=== PATIENT | female | born 1965 | race Caucasian/White ===

== ENCOUNTER 2017-02-13 08:49 | Emergency (ER) | payer SELFPAY ==
[2017-02-13 10:06] LABS: Bilirubin Negative (Negative); Blood, Urine Large (Negative); Glucose, Urine (Dipstick) Negative (Negative); Ketone, Urine Negative (Negative); Nitrite Negative (Negative); Protein, Urine (Dipstick) 100 mg/dL (Neg-Trace)
[2017-02-13 10:09] LABS: Bacteria/HPF 3+ HPF (None Seen); Hyaline Casts/LPF 0-3 HYALINE CAST LPF (0-3 Hyaline); RBC/HPF GREATER THAN 50-TNTC HPF (0-3); Squamous Epithelial None Seen HPF (0-3); WBC/HPF 0-3 HPF (0-3)
[2017-02-13 11:00] LABS: #Eosinphils 0.1 thou/uL (0.0-0.7); #Lymphocytes 1.4 thou/uL (1.20-3.40); #Monocytes 0.5 thou/uL (0.11-0.59); #Neutrophils 8.5 thou/uL (1.40-6.50); %Basophils 0.3 % (0.0-1.0); %Eosinophils 0.9 % (0.0-10.0); %Lymphocytes 13.1 % (21.0-51.0); %Monocytes 4.4 % (0.0-10.0); Hematocrit 40.8 % (36.0-47.0); Mean Platelet Volume 7.4 fL (7.4-10.4); Red Blood Cell (RBC) Count 4.67 mill/uL (4.20-5.40); White Blood Cell (WBC) Count 10.4 thou/uL (4.8-10.8)
[2017-02-13 11:20] LABS: Anion Gap 13 mmol/L (10-20); BUN (Urea Nitrogen) 11 mg/dL (9.8-20.1); Calc. Creatinine Clearance 0 mL/min (70-130); Calcium 9.8 mg/dL (7.8-10.44); Carbon Dioxide 28 mmol/L (22-29); Chloride 100 mmol/L (98-107); Estimated GFR-MDRD 76
--- NOTE | 2017-02-13 12:00 | CT ---
CT ABDOMEN AND PELVIS: DATE: 02/13/17. COMPARISON: None. HISTORY: Urinary tract infection symptoms, bladder pressure with dysuria, frequency, and hematuria. TECHNIQUE: Serial axial CT imaging at 5 mm intervals from lung bases through pubic symphysis without contrast. Coronal reformatted imaging obtained. FINDINGS: The lack of contrast media limits assessment of the viscera, bowel vascular structures, and for lymph adenopathy. The imaged lung bases are grossly unremarkable. There are clips in the right upper quadrant suggesti ng prior cholecystectomy. No free intraperitoneal air or fluid is noted. The liver, spleen, pancreas, and adrenal glands are unremarkable. There is a punctate nonobstructing upper pole stone on the left best seen on image 89 measuring appro ximately 2 mm. There is a punctate nonobstructing mid pole right renal stone best seen on coronal im age 72. There is no hydronephrosis on the right. No evidence for obstructive uropathy is seen on ei ther side. There is an exophytic hypodense lesion emanating from the posterior right renal mid pole, with Hounsfield units suggesting a simple cyst, measuring in the 2 cm range. The uterus appears surgically absent. There is scattered colonic diverticula including the ascending and descending colon, with no evidence for diverticulitis. There is no evidence for bowel obstructi on or appendicitis. There is lower lumbar spine facet hypertrophic change. There is degenerative change at the lumbosacr al junction. No worrisome lytic or blastic bone lesion noted. IMPRESSION: No evidence for obstructive uropathy. Punctate nonobstructing renal calculi noted bilaterally. POS: [facility]
[2017-02-13] MEDS ORDERED: Ciprofloxacin 500 MG TAB ONE (12:07)
== END 2017-02-13 12:10 | disposition home or self-care (01) ==
LOC: ERS 08:49
DX: N39.0 Urinary tract infection, site not specified (principal); F32.9 Major depressive disorder, single episode, unspecified; F41.9 Anxiety disorder, unspecified; E11.9 Type 2 diabetes mellitus without complications; Z79.899 Other long term (current) drug therapy; Z79.4 Long term (current) use of insulin
CPT/HCPCS: 36415; 74176; 80048; 81003; 81015; 85025; 87077; 87086; 87186

== ENCOUNTER 2018-01-21 18:58 | Emergency (ER) | payer MEDICAID, SELFPAY ==
[2018-01-21] MEDS ORDERED: Ketorolac Tromethamine 60 MG/2 ML VIAL ONE (19:24)
--- NOTE | 2018-01-21 19:36 | RAD ---
FOUR VIEWS RIGHT KNEE: 01/21/18 HISTORY: Right knee pain. AP, lateral and both oblique views right knee obtained. For views of the right knee demonstrates no evidence of right knee fractures, subluxations, or bony l esions. IMPRESSION: Normal four views right knee. POS: [facility]
== END 2018-01-21 19:54 | disposition home or self-care (01) ==
LOC: ERS 18:58
DX: S80.01XA Contusion of right knee, initial encounter (principal); E11.9 Type 2 diabetes mellitus without complications; E78.00 Pure hypercholesterolemia, unspecified; F41.9 Anxiety disorder, unspecified; F32.9 Major depressive disorder, single episode, unspecified; Z79.899 Other long term (current) drug therapy; Z79.4 Long term (current) use of insulin; X58.XXXA Exposure to other specified factors, initial encounter
CPT/HCPCS: 96372; J1885

== ENCOUNTER 2018-01-31 21:19 | Emergency (ER) | payer MEDICAID ==
[2018-01-31 21:58] LABS: #Eosinphils 0.1 thou/uL (0.0-0.7); #Lymphocytes 1.2 thou/uL (1.20-3.40); #Monocytes 0.5 thou/uL (0.11-0.59); #Neutrophils 7.1 thou/uL (1.40-6.50); %Basophils 0.2 % (0.0-1.0); %Eosinophils 0.9 % (0.0-10.0); %Lymphocytes 13.1 % (21.0-51.0); %Monocytes 5.3 % (0.0-10.0); %Neutrophils 80.6 % (42.0-75.0); Hemoglobin 14.7 g/dL (12.0-16.0); Mean Corpuscular HGB CONC 33.3 g/dL (32.0-36.0); Mean Corpuscular Hemoglobin 28.9 pg (27.0-31.0); Mean Corpuscular Volume 86.9 fL (78.0-98.0); Mean Platelet Volume 7.4 fL (7.4-10.4); Platelet Count 319 thou/uL (130-400); RBC Distribution Width 12.9 % (11.5-14.5); Red Blood Cell (RBC) Count 5.09 mill/uL (4.20-5.40); White Blood Cell (WBC) Count 8.8 thou/uL (4.8-10.8)
[2018-01-31 22:17] LABS: Bilirubin Negative (Negative); Blood, Urine Negative (Negative); Clarity CLOUDY (Clear); Glucose, Urine (Dipstick) 250 mg/dL (Negative); Leukocyte Small (Negative); Nitrite Negative (Negative); Protein, Urine (Dipstick) 30 mg/dL (Neg-Trace); Specific Gravity, Urine 1.026 (1.002-1.036); pH, Urine 6.5 (5.0-9.0)
[2018-01-31 22:19] LABS: ALT (SGPT) 26 U/L (8-55); AST (SGOT) 18 U/L (5-34); Albumin 4.3 g/dL (3.5-5.0); Alkaline Phosphatase 98 U/L (40-150); Anion Gap 13 mmol/L (10-20); BUN (Urea Nitrogen) 13 mg/dL (9.8-20.1); Bilirubin, Total 0.5 mg/dL (0.2-1.2); Calc. Creatinine Clearance 0 mL/min (70-130); Calcium 9.1 mg/dL (7.8-10.44); Carbon Dioxide 26 mmol/L (22-29); Chloride 103 mmol/L (98-107); Estimated GFR-MDRD 78; Globulin 3.2 g/dL (2.4-3.5); Glucose 255 mg/dL (70-105); Lipase 13 U/L (8-78); Magnesium 1.8 mg/dL (1.6-2.6); Potassium 3.7 mmol/L (3.5-5.1); Protein, Total 7.5 g/dL (6.0-8.3); Sodium 138 mmol/L (136-145)
[2018-01-31 22:19] LABS: Bacteria/HPF 1+ HPF (None Seen); Hyaline Casts/LPF 7-10 HYALINE CAST LPF (0-3 Hyaline)
[2018-01-31 22:20] LABS: RBC/HPF 0-3 HPF (0-3)
== END 2018-01-31 23:09 | disposition home or self-care (01) ==
LOC: ERS 21:19
DX: N39.0 Urinary tract infection, site not specified (principal); E11.9 Type 2 diabetes mellitus without complications; F41.9 Anxiety disorder, unspecified; F32.9 Major depressive disorder, single episode, unspecified; Z79.4 Long term (current) use of insulin; Z79.899 Other long term (current) drug therapy
CPT/HCPCS: 36416; 80053; 81003; 81015; 83690; 83735; 85025; 99284

== ENCOUNTER 2018-03-21 16:13 | Emergency (ER) | payer MEDICAID, OTHER | END 2018-03-21 16:54 | disposition home or self-care (01) | LOC: ERS 16:13 | DX: B34.9 Viral infection, unspecified (principal); E11.9 Type 2 diabetes mellitus without complications; I10 Essential (primary) hypertension; E78.00 Pure hypercholesterolemia, unspecified; F41.9 Anxiety disorder, unspecified; F32.9 Major depressive disorder, single episode, unspecified; Z79.4 Long term (current) use of insulin | CPT/HCPCS: 99283 ==

== ENCOUNTER 2018-05-19 20:28 | Emergency (ER) | payer OTHER ==
--- NOTE | 2018-05-19 23:03 | RAD ---
FOUR VIEWS RIGHT KNEE: 05/19/18 HISTORY: Right knee pain. COMPARISON: 01/21/18. FINDINGS: There is irregularity involving the lateral tibial plateau, but this was also present on the prior ex am and may be related to remote fracture involving the lateral tibial plateau. No acute fracture or d islocation is seen. There is no joint effusion appreciated. No other findings. IMPRESSION: 1. No acute osseous abnormality right knee. 2. Probable remote injury and fracture involving the right lateral tibial plateau. POS: [facility]
== END 2018-05-19 21:50 | disposition home or self-care (01) ==
LOC: ERS 20:28
DX: S83.91XA Sprain of unspecified site of right knee, initial encounter (principal); E11.9 Type 2 diabetes mellitus without complications; I10 Essential (primary) hypertension; Z79.4 Long term (current) use of insulin; F41.9 Anxiety disorder, unspecified; F32.9 Major depressive disorder, single episode, unspecified; Z79.899 Other long term (current) drug therapy; V29.9XXA Motorcycle rider (driver) (passenger) injured in unspecified traffic accident, initial encounter

== ENCOUNTER 2018-05-26 15:41 | Emergency (ER) | payer OTHER ==
[2018-05-26 19:02] LABS: #Basophils 0.1 thou/uL (0.0-0.2); #Eosinphils 0.2 thou/uL (0.0-0.7); #Lymphocytes 3.1 thou/uL (1.20-3.40); #Monocytes 0.7 thou/uL (0.11-0.59); #Neutrophils 5.7 thou/uL (1.40-6.50); %Basophils 0.7 % (0.0-1.0); %Eosinophils 2.5 % (0.0-10.0); %Lymphocytes 31.8 % (21.0-51.0); %Neutrophils 57.9 % (42.0-75.0); Hemoglobin 14.6 g/dL (12.0-16.0); Mean Corpuscular HGB CONC 32.5 g/dL (32.0-36.0); Mean Corpuscular Hemoglobin 28.3 pg (27.0-31.0); Mean Platelet Volume 7.5 fL (7.4-10.4); Platelet Count 326 thou/uL (130-400); RBC Distribution Width 13.4 % (11.5-14.5); Red Blood Cell (RBC) Count 5.16 mill/uL (4.20-5.40); White Blood Cell (WBC) Count 9.8 thou/uL (4.8-10.8)
--- NOTE | 2018-05-26 19:25 | RAD ---
CHEST ONE VIEW 05/26/18 INDICATION: History of heart palpitations. COMPARISON: None. FINDINGS: Lungs are clear. Heart size is normal. No acute osseous abnormality is evident. No acute cardiopulmonary abnormality. POS: [facility]
[2018-05-26 19:33] LABS: ALT (SGPT) 24 U/L (8-55); AST (SGOT) 19 U/L (5-34); Albumin 4.6 g/dL (3.5-5.0); Alkaline Phosphatase 110 U/L (40-150); Anion Gap 11 mmol/L (10-20); BUN (Urea Nitrogen) 16 mg/dL (9.8-20.1); Bilirubin, Total 0.3 mg/dL (0.2-1.2); CK (CPK) 50 U/L (29-168); Calc. Creatinine Clearance 0 mL/min (70-130); Calcium 9.9 mg/dL (7.8-10.44); Carbon Dioxide 31 mmol/L (22-29); Chloride 104 mmol/L (98-107); Estimated GFR-MDRD 74; Globulin 2.9 g/dL (2.4-3.5); Glucose 127 mg/dL (70-105); Potassium 4.4 mmol/L (3.5-5.1); Protein, Total 7.5 g/dL (6.0-8.3); Sodium 142 mmol/L (136-145)
== END 2018-05-26 21:32 | disposition home or self-care (01) ==
LOC: ERS 15:41
DX: I10 Essential (primary) hypertension (principal); E11.9 Type 2 diabetes mellitus without complications; E78.5 Hyperlipidemia, unspecified; F41.9 Anxiety disorder, unspecified; F32.9 Major depressive disorder, single episode, unspecified; Z79.899 Other long term (current) drug therapy; Z79.4 Long term (current) use of insulin
CPT/HCPCS: 36415; 36416; 71045; 80053; 82550; 84484; 85025; 93005

== ENCOUNTER 2018-06-03 12:08 | Emergency (ER) | payer OTHER ==
[2018-06-03 13:53] LABS: #Eosinphils 0.2 thou/uL (0.0-0.7); #Lymphocytes 2.4 thou/uL (1.20-3.40); #Monocytes 0.5 thou/uL (0.11-0.59); #Neutrophils 6.1 thou/uL (1.40-6.50); %Basophils 0.3 % (0.0-1.0); %Eosinophils 2.2 % (0.0-10.0); %Monocytes 5.6 % (0.0-10.0); %Neutrophils 65.9 % (42.0-75.0); Hemoglobin 14.9 g/dL (12.0-16.0); Mean Corpuscular HGB CONC 32.5 g/dL (32.0-36.0); Mean Corpuscular Hemoglobin 28.5 pg (27.0-31.0); Mean Corpuscular Volume 87.8 fL (78.0-98.0); Mean Platelet Volume 8.3 fL (7.4-10.4); Platelet Count 311 thou/uL (130-400); RBC Distribution Width 13.8 % (11.5-14.5); Red Blood Cell (RBC) Count 5.22 mill/uL (4.20-5.40); White Blood Cell (WBC) Count 9.2 thou/uL (4.8-10.8)
--- NOTE | 2018-06-03 14:00 | RAD ---
PORTABLE CHEST ONE VIEW: 06/03/2018 1:44 p.m. HISTORY: Dyspnea. COMPARISON: 04/28/2018 FINDINGS: The heart size is normal. The lungs are well expanded without focal areas of consolidation, pneumoth oraces, or pleural effusions. IMPRESSION: No radiographic evidence of acute cardiopulmonary process. POS: [facility]
[2018-06-03 14:19] LABS: ALT (SGPT) 24 U/L (8-55); AST (SGOT) 31 U/L (5-34); Albumin 4.5 g/dL (3.5-5.0); Alkaline Phosphatase 113 U/L (40-150); Anion Gap 17 mmol/L (10-20); BUN (Urea Nitrogen) 19 mg/dL (9.8-20.1); Bilirubin, Total 0.3 mg/dL (0.2-1.2); Calc. Creatinine Clearance 0 mL/min (70-130); Calcium 9.9 mg/dL (7.8-10.44); Carbon Dioxide 21 mmol/L (22-29); Chloride 104 mmol/L (98-107); Estimated GFR-MDRD 81; Globulin 3.4 g/dL (2.4-3.5); Glucose 142 mg/dL (70-105); Potassium 4.3 mmol/L (3.5-5.1); Protein, Total 7.9 g/dL (6.0-8.3); Sodium 138 mmol/L (136-145)
== END 2018-06-03 13:10 | disposition home or self-care (01) ==
LOC: ERS 12:08
DX: F41.9 Anxiety disorder, unspecified (principal); E11.9 Type 2 diabetes mellitus without complications; E78.5 Hyperlipidemia, unspecified; I10 Essential (primary) hypertension; E78.00 Pure hypercholesterolemia, unspecified; F32.9 Major depressive disorder, single episode, unspecified; Z79.1 Long term (current) use of non-steroidal anti-inflammatories (NSAID); Z79.899 Other long term (current) drug therapy; Z79.4 Long term (current) use of insulin
CPT/HCPCS: 36415; 36416; 71045; 80053; 84484; 85025; 93005

== ENCOUNTER 2018-08-31 22:43 | Emergency (ER) | payer OTHER ==
--- NOTE | 2018-08-31 23:29 | RAD ---
Left foot 3 views HISTORY: Left foot pain. FINDINGS: Lisfranc joint. Plantar arch is maintained. Very mild osteoarthritic changes of the first m etatarsophalangeal joint. No acute fracture, dislocation, or aggressive osseous erosions IMPRESSION: No acute osseous abnormalities are demonstrated.
== END 2018-08-31 23:45 | disposition home or self-care (01) ==
LOC: ERS 22:43
DX: S90.812A Abrasion, left foot, initial encounter (principal); F41.9 Anxiety disorder, unspecified; F32.9 Major depressive disorder, single episode, unspecified; E78.5 Hyperlipidemia, unspecified; E11.9 Type 2 diabetes mellitus without complications; I10 Essential (primary) hypertension; Z79.4 Long term (current) use of insulin; Z79.899 Other long term (current) drug therapy; Z79.891 Long term (current) use of opiate analgesic; W22.8XXA Striking against or struck by other objects, initial encounter

== ENCOUNTER 2018-11-20 19:00 | Emergency (ER) | payer MEDICARE, OTHER ==
[2018-11-20] MEDS ORDERED: traMADol HCl 50 MG TAB ONE (19:45)
--- NOTE | 2018-11-20 19:48 | RAD ---
RIGHT KNEE: 11/20/18 Four views. HISTORY: Right knee pain. Injury two days ago. COMPARISON: Comparison made to films of 05/19/18. Degenerative changes are again noted. Slight depression of the lateral tibial plateau is stable. Mil d degenerative spurring is again noted from the patella and condyles. Deformity of the lateral right tibial plateau is described previously and appears stable consistent with old injury. No joint effusi on. IMPRESSION: Degenerative changes. Evidence of old fracture involving the lateral tibial plateau. The findings melony ear stable with no evidence of acute change. POS: [facility]
== END 2018-11-20 20:25 | disposition home or self-care (01) ==
LOC: ERS 19:00
DX: M62.838 Other muscle spasm (principal); E11.9 Type 2 diabetes mellitus without complications; E78.5 Hyperlipidemia, unspecified; E78.00 Pure hypercholesterolemia, unspecified; I10 Essential (primary) hypertension; F41.9 Anxiety disorder, unspecified; F32.9 Major depressive disorder, single episode, unspecified; Z79.4 Long term (current) use of insulin; Z79.899 Other long term (current) drug therapy; W01.0XXA Fall on same level from slipping, tripping and stumbling without subsequent striking against object, initial encounter

== ENCOUNTER 2018-11-29 19:46 | Emergency (ER) | payer MEDICARE, OTHER ==
[2018-11-29 20:10] LABS: Blood, Urine Large (Negative); Glucose, Urine (Dipstick) 500 mg/dL (Negative); Leukocyte Large (Negative); Nitrite Positive (Negative); Protein, Urine (Dipstick) > or equal to 300 mg/dL (Neg-Trace)
[2018-11-29 20:15] LABS: #Basophils 0.1 thou/uL (0.0-0.2); #Eosinphils 0.1 thou/uL (0.0-0.7); #Monocytes 0.8 thou/uL (0.11-0.59); %Basophils 0.5 % (0.0-1.0); %Eosinophils 0.8 % (0.0-10.0); %Lymphocytes 18.9 % (21.0-51.0); %Monocytes 5.1 % (0.0-10.0); %Neutrophils 74.7 % (42.0-75.0); Hemoglobin 14.3 g/dL (12.0-16.0); Mean Corpuscular HGB CONC 33.9 g/dL (32.0-36.0); Mean Corpuscular Hemoglobin 28.9 pg (27.0-31.0); Mean Corpuscular Volume 85.3 fL (78.0-98.0); Platelet Count 329 thou/uL (130-400); RBC Distribution Width 12.5 % (11.5-14.5); Red Blood Cell (RBC) Count 4.94 mill/uL (4.20-5.40)
[2018-11-29 20:15] LABS: Clarity Opaque (Clear)
[2018-11-29 20:16] LABS: Bilirubin Negative (Negative)
[2018-11-29 20:20] LABS: Bacteria/HPF None Seen HPF (None Seen); RBC/HPF Greater than 50 HPF (0-3); Squamous Epithelial 0-3 HPF (0-3); WBC/HPF Greater Than 50 HPF (0-3)
--- NOTE | 2018-11-29 20:33 | CT ---
CT of abdomen and pelvis: 11/29/2018 COMPARISON: 02/13/2017 HISTORY: Right lower quadrant pain, vaginal bleeding, history of cholecystectomy and hysterectomy TECHNIQUE: Axial CT imaging at 5 mm intervals from lung bases through pubic symphysis without contras t. Coronal reformatted imaging obtained. FINDINGS: Lack of contrast media limits assessment of the viscera, bowel, vascular structures, and fo r lymphadenopathy. The imaged lung bases are unremarkable. Cholecystectomy clips are present. No free intraperitoneal ai r or fluid. The liver, spleen, pancreas, and adrenal glands appear unremarkable. There is a simple cyst emanating from the posterior right renal midpole. No evidence for nephrolithia sis or obstructive uropathy is noted on either side. There is diverticulosis of the right colon with no evidence for diverticulitis. The appendix appears unremarkable. No evidence for bowel inflammatory change or obstruction. Osseous structures demonstrate no acute findings. IMPRESSION: No nephrolithiasis or evidence of obstructive uropathy.
[2018-11-29 20:48] LABS: ALT (SGPT) 32 U/L (8-55); AST (SGOT) 23 U/L (5-34); Albumin 4.6 g/dL (3.5-5.0); Alkaline Phosphatase 106 U/L (40-150); Anion Gap 15 mmol/L (10-20); BUN (Urea Nitrogen) 16 mg/dL (9.8-20.1); Bilirubin, Total 0.2 mg/dL (0.2-1.2); Calc. Creatinine Clearance 0 mL/min (70-130); Carbon Dioxide 26 mmol/L (22-29); Chloride 99 mmol/L (98-107); Estimated GFR-MDRD 50; Globulin 3.2 g/dL (2.4-3.5); Glucose 308 mg/dL (70-105); Protein, Total 7.8 g/dL (6.0-8.3); Sodium 136 mmol/L (136-145)
[2018-11-29] MEDS ORDERED: Ciprofloxacin 500 MG TAB ONE (21:35)
== END 2018-11-29 21:35 | disposition home or self-care (01) ==
LOC: ERS 19:46
DX: N39.0 Urinary tract infection, site not specified (principal); E11.65 Type 2 diabetes mellitus with hyperglycemia; I10 Essential (primary) hypertension; F41.9 Anxiety disorder, unspecified; Z79.1 Long term (current) use of non-steroidal anti-inflammatories (NSAID); Z79.899 Other long term (current) drug therapy; Z79.4 Long term (current) use of insulin
CPT/HCPCS: 36415; 74176; 80053; 81003; 81015; 85025; 87086

== ENCOUNTER 2019-03-26 13:15 | Emergency (ER) | payer MEDICARE, OTHER ==
[2019-03-26] MEDS ORDERED: Fentanyl 100 MCG/2 ML VIAL ONE (14:16)
[2019-03-26] MEDS ORDERED: Ketorolac Tromethamine 30 MG/ML VIAL ONE ×2 (14:17)
[2019-03-26] MEDS ORDERED: Dexamethasone 4 mg/ml Vial ONE (14:17)
--- NOTE | 2019-03-26 14:26 | RAD ---
LEFT SHOULDER 3 VIEWS: Date: 03/26/2019 INDICATION: Left shoulder pain. COMPARISON: None. FINDINGS: No acute fracture or subluxation is evident. Visualized left lung is clear. IMPRESSION: No acute osseous abnormality. POS: [facility]
[2019-03-26] MEDS ORDERED: Ondansetron ODT 4 MG TAB ONE (18:05)
== END 2019-03-26 14:55 | disposition home or self-care (01) ==
LOC: ERS 13:15
DX: M75.52 Bursitis of left shoulder (principal); E11.9 Type 2 diabetes mellitus without complications; E78.5 Hyperlipidemia, unspecified; E78.00 Pure hypercholesterolemia, unspecified; I10 Essential (primary) hypertension; F41.9 Anxiety disorder, unspecified; F32.9 Major depressive disorder, single episode, unspecified; Z79.4 Long term (current) use of insulin; Z79.899 Other long term (current) drug therapy
CPT/HCPCS: 96372; J1100; J1885; J3010; Q0162

== ENCOUNTER 2019-12-23 14:01 | Emergency (ER) | payer MEDICARE, MEDICAID ==
--- NOTE | 2019-12-23 14:51 | RAD ---
XR Shoulder Rt 3 View STANDARD HISTORY: Injury, right shoulder pain FINDINGS: No fracture or dislocation is identified.
[2019-12-23] MEDS ORDERED: Ketorolac Tromethamine 30 MG/ML VIAL ONE (15:18)
== END 2019-12-23 15:40 | disposition home or self-care (01) ==
LOC: ERS 14:01
DX: M25.511 Pain in right shoulder (principal); E11.9 Type 2 diabetes mellitus without complications; E78.5 Hyperlipidemia, unspecified; E78.00 Pure hypercholesterolemia, unspecified; I10 Essential (primary) hypertension; F41.9 Anxiety disorder, unspecified; F32.9 Major depressive disorder, single episode, unspecified; Z79.899 Other long term (current) drug therapy; Z79.4 Long term (current) use of insulin
CPT/HCPCS: 96372; J1885

== ENCOUNTER 2020-06-02 20:42 | Observation (INO) | payer MEDICARE, MEDICAID ==
[2020-06-02 21:32] LABS: #Basophils 0.1 thou/uL (0.0-0.2); #Eosinphils 0.1 thou/uL (0.0-0.7); #Lymphocytes 1.8 thou/uL (1.20-3.40); #Monocytes 0.8 thou/uL (0.11-0.59); #Neutrophils 6.5 thou/uL (1.40-6.50); %Basophils 0.6 % (0.0-1.0); %Eosinophils 1.2 % (0.0-10.0); %Lymphocytes 19.8 % (21.0-51.0); %Monocytes 8.5 % (0.0-10.0); Hemoglobin 11.8 g/dL (12.0-16.0); Mean Corpuscular HGB CONC 31.7 g/dL (32.0-36.0); Mean Corpuscular Hemoglobin 25.4 pg (27.0-31.0); Mean Corpuscular Volume 80.2 fL (78.0-98.0); Mean Platelet Volume 7.7 fL (7.4-10.4); Platelet Count 341 thou/uL (130-400); RBC Distribution Width 15.8 % (11.5-14.5); Red Blood Cell (RBC) Count 4.65 mill/uL (4.20-5.40); White Blood Cell (WBC) Count 9.3 thou/uL (4.8-10.8)
[2020-06-02 22:01] LABS: ALT (SGPT) 23 U/L (8-55); AST (SGOT) 18 U/L (5-34); Albumin 4.6 g/dL (3.5-5.0); Alkaline Phosphatase 136 U/L (40-110); Anion Gap 14 mmol/L (10-20); BUN (Urea Nitrogen) 27 mg/dL (9.8-20.1); Bilirubin, Total 0.2 mg/dL (0.2-1.2); Calc. Creatinine Clearance 0 mL/min (70-130); Calcium 9.3 mg/dL (7.8-10.44); Carbon Dioxide 24 mmol/L (22-29); Chloride 102 mmol/L (98-107); Globulin 3.1 g/dL (2.4-3.5); Glucose 169 mg/dL (70-105); Potassium 4.2 mmol/L (3.5-5.1); Protein, Total 7.7 g/dL (6.0-8.3); Sodium 136 mmol/L (136-145)
[2020-06-02] MEDS ORDERED: Nitroglycerin 2% Ointment 1 INCH/1 GM Packet ONE (22:45)
[2020-06-02] MEDS ORDERED: Aspirin Chewable 81 MG TAB ONE (22:45)
[2020-06-03 01:40] LABS: Troponin I Less than 0.010 ng/mL (< 0.028)
[2020-06-03] MEDS ORDERED: hydrOXYzine 25 MG TAB PO PRN (03:23)
[2020-06-03] MEDS ORDERED: Dextrose 5% in Water 1,000 ML IV PRN (03:23)
[2020-06-03] MEDS ORDERED: Acetaminophen 325 MG TAB PO PRN (03:23)
[2020-06-03] MEDS ORDERED: Dextrose 50% Abboject 50 ML SYRINGE SLOW IVP PRN (03:23)
[2020-06-03] MEDS ORDERED: Calcium Carbonate 500 MG ChewTAB PO PRN (03:23)
[2020-06-03] MEDS ORDERED: Ondansetron ODT 4 MG TAB PO PRN (03:23)
[2020-06-03] MEDS ORDERED: HumaLOG 300 UNITS/3 ML VIAL SC PRN (03:23)
[2020-06-03 03:37] VITALS: BMI 38.9
[2020-06-03 05:31] LABS: Troponin I Less than 0.010 ng/mL (< 0.028)
[2020-06-03 09:14] LABS: SARS-CoV-2 PCR by NAA Not Detected (NotDetected)
[2020-06-03] MEDS: Atorvastatin Calcium 40 MG TAB PO SCH (10:57)
[2020-06-03] MEDS: CeleCOXIB 100 MG CAP PO SCH (10:57)
[2020-06-03] MEDS: Lisinopril 10 MG TAB PO SCH (10:58)
[2020-06-03] MEDS: Empagliflozin 25 MG TAB PO SCH (10:58)
[2020-06-03] MEDS: HumaLOG 300 UNITS/3 ML VIAL SC PRN ×2 (11:45→16:53)
[2020-06-03] MEDS ORDERED: ADENOSINE 60 MG/20 ML VIAL ONE (14:51)
[2020-06-03] MEDS ORDERED: Amitriptyline HCl 25 MG TAB PO SCH (21:00)
[2020-06-04] MEDS: HumaLOG 300 UNITS/3 ML VIAL SC PRN ×2 (06:26→11:28)
[2020-06-04] MEDS: CeleCOXIB 100 MG CAP PO SCH (09:24)
[2020-06-04] MEDS: Atorvastatin Calcium 40 MG TAB PO SCH (09:24)
[2020-06-04] MEDS: Empagliflozin 25 MG TAB PO SCH (09:24)
[2020-06-04] MEDS: Lisinopril 10 MG TAB PO SCH (09:25)
[2020-06-04 12:01] VITALS: BP 138/70; TEMP 97.8
== END 2020-06-04 15:04 | disposition home or self-care (01) ==
LOC: ERS 20:42 → 2SE 23:24
PROVIDERS: ADMIT Family Medicine; ATTEND Family Medicine
DX: R07.89 Other chest pain (principal); F41.0 Panic disorder [episodic paroxysmal anxiety]; E11.9 Type 2 diabetes mellitus without complications; E78.5 Hyperlipidemia, unspecified; I10 Essential (primary) hypertension; F41.9 Anxiety disorder, unspecified; F32.9 Major depressive disorder, single episode, unspecified; M19.90 Unspecified osteoarthritis, unspecified site; R00.0 Tachycardia, unspecified; Z79.4 Long term (current) use of insulin; Z79.899 Other long term (current) drug therapy; Z88.0 Allergy status to penicillin; Z88.1 Allergy status to other antibiotic agents; Z88.2 Allergy status to sulfonamides; Z88.5 Allergy status to narcotic agent; Z20.822 Contact with and (suspected) exposure to COVID-19
CPT/HCPCS: 71045; 78452; 80053; 82962 ×2; 84484 ×3; 85025; 93005; 93017; 99285; A9500; G0378 ×4; U0003; U0005; 36415; 36416; 87635; J0153; J1815

== ENCOUNTER 2020-06-15 09:15 | Outpatient (CLI) | payer MEDICARE, MEDICAID | END 2020-06-15 09:16 | disposition home or self-care (01) | LOC: DTY/OP 09:15 | PROVIDERS: ATTEND Hospitalist | DX: E11.65 Type 2 diabetes mellitus with hyperglycemia (principal) | CPT/HCPCS: 97802 ==

== ENCOUNTER 2020-11-24 08:00 | Outpatient (CLI) | payer MEDICARE, MEDICAID | END 2020-11-24 08:01 | disposition home or self-care (01) | LOC: BICMAMMO 08:00 | PROVIDERS: ATTEND Family Medicine | DX: Z12.31 Encounter for screening mammogram for malignant neoplasm of breast (principal) | CPT/HCPCS: 77063; 77067 ==

== ENCOUNTER 2021-02-07 09:45 | Outpatient (CLI) | payer MEDICARE, MEDICAID | END 2021-02-07 09:46 | disposition home or self-care (01) | LOC: BICMAMMO 09:45 | PROVIDERS: ATTEND Family Medicine | DX: Z13.820 Encounter for screening for osteoporosis (principal); Z78.0 Asymptomatic menopausal state | CPT/HCPCS: 77080 ==

== ENCOUNTER 2021-02-13 11:01 | Outpatient (CLI) | payer MEDICARE, MEDICAID ==
[2021-02-14 11:23] LABS: SARS-CoV-2 PCR by NAA Not Detected (NotDetected)
== END 2021-02-13 11:02 | disposition home or self-care (01) ==
LOC: LABBT 11:01
PROVIDERS: ATTEND Internal Medicine Gastroenterology
DX: Z01.812 Encounter for preprocedural laboratory examination (principal); K63.5 Polyp of colon; Z20.822 Contact with and (suspected) exposure to COVID-19
CPT/HCPCS: U0003; U0005

== ENCOUNTER 2021-02-16 06:54 | Day surgery (SDC) | payer MEDICARE, OTHER ==
[2021-02-14 14:33] VITALS: BMI 39.6
[2021-02-16] MEDS ORDERED: Insulin Regular 300 UNITS/3 ML VIAL ONE (08:09)
[2021-02-16] MEDS ORDERED: Lidocaine 1% PF 5 ML VIAL ONE (08:30)
[2021-02-16] MEDS ORDERED: PROPOFOL 200 MG/20 ML VIAL ONE (08:30)
[2021-02-16] MEDS ORDERED: Phenylephrine 10 MG/ML VIAL ONE (08:30)
== END 2021-02-16 11:13 | disposition home or self-care (01) ==
LOC: SDC 06:54
PROVIDERS: ATTEND Internal Medicine Gastroenterology
PROC: 0DJD8ZZ Inspection of Lower Intestinal Tract, Via Natural or Artificial Opening Endoscopic (ICD-10-PCS; principal; 2021-02-16)
DX: Z12.11 Encounter for screening for malignant neoplasm of colon (principal); K64.8 Other hemorrhoids; I10 Essential (primary) hypertension; E11.9 Type 2 diabetes mellitus without complications; J30.9 Allergic rhinitis, unspecified; M19.90 Unspecified osteoarthritis, unspecified site; Z86.010 Personal history of colon polyps; Z79.4 Long term (current) use of insulin; Z79.899 Other long term (current) drug therapy; Z88.0 Allergy status to penicillin; Z88.1 Allergy status to other antibiotic agents; Z88.2 Allergy status to sulfonamides; Z88.5 Allergy status to narcotic agent; Z91.040 Latex allergy status
CPT/HCPCS: 82962; G0121; 36416; J1815; J2370; J2704

== ENCOUNTER 2021-02-22 10:27 | Outpatient (CLI) | payer MEDICARE, MEDICAID | END 2021-02-22 10:28 | disposition home or self-care (01) | LOC: MRI 10:27 | PROVIDERS: ATTEND Family Medicine | DX: M25.562 Pain in left knee (principal); M23.92 Unspecified internal derangement of left knee ==

== ENCOUNTER 2021-07-09 13:01 | Day surgery (SDC) | payer MEDICARE, OTHER ==
[~2021-07-09 13:01] MED LIST: Acetaminophen 500 MG TAB PO SCH; Ferumoxytol (NON ERSD) 510 MG in Sodium Chloride 0.9% 250 ML 150 ML IVPB SCH
[2021-07-09 13:45] VITALS: BP 102/62
== END 2021-07-09 14:57 | disposition home or self-care (01) ==
LOC: ONC/OP 13:01
PROVIDERS: ATTEND Family Medicine
DX: E61.1 Iron deficiency (principal); Z88.0 Allergy status to penicillin; Z88.1 Allergy status to other antibiotic agents; Z88.2 Allergy status to sulfonamides; Z88.5 Allergy status to narcotic agent; Z91.040 Latex allergy status
CPT/HCPCS: 96365; J7050; Q0138

== ENCOUNTER 2022-11-04 12:41 | Emergency (ER) | payer OTHER, MEDICAID ==
[~2022-11-04 12:41] MED LIST changes: -Acetaminophen 500 MG TAB PO SCH; -Ferumoxytol (NON ERSD) 510 MG in Sodium Chloride 0.9% 250 ML 150 ML IVPB SCH; +Iopamidol-370 76% 500 ML MDV (1 ML CHARGE) ONE
[2022-11-04 13:29] LABS: #Monocytes 0.7 thou/uL (0.11-0.59); #Neutrophils 7.3 thou/uL (1.40-6.50); %Basophils 0.4 % (0.0-1.0); %Eosinophils 0.1 % (0.0-10.0); %Lymphocytes 14.6 % (21.0-51.0); %Monocytes 7.5 % (0.0-10.0); %Neutrophils 77.1 % (42.0-75.0); Hematocrit 48.6 % (36.0-47.0); Hemoglobin 16.1 g/dL (12.0-16.0); Mean Corpuscular HGB CONC 33.1 g/dL (32.0-36.0); Mean Corpuscular Hemoglobin 27.8 pg (27.0-31.0); Mean Corpuscular Volume 83.9 fl (78.0-98.0); Mean Platelet Volume 11.8 fL (7.4-10.4); Platelet Count 265 10x3/uL (130-400); RBC Distribution Width 14.4 % (11.5-14.5); Red Blood Cell (RBC) Count 5.79 mill/uL (4.20-5.40); White Blood Cell (WBC) Count 9.4 10x3/uL (4.8-10.8)
[2022-11-04 13:56] LABS: ALT (SGPT) 54 U/L (8-55); AST (SGOT) 55 U/L (5-34); Albumin 4.1 g/dL (3.5-5.0); Alkaline Phosphatase 97 U/L (40-110); Anion Gap 19 mmol/L (10-20); BUN (Urea Nitrogen) 41 mg/dL (9.8-20.1); Bilirubin, Total 0.6 mg/dL (0.2-1.2); Calc. Creatinine Clearance 0 mL/min (70-130); Calcium 10.2 mg/dL (7.8-10.44); Carbon Dioxide 23 mmol/L (22-29); Chloride 101 mmol/L (98-107); Estimated GFR 51; Globulin 3.2 g/dL (2.4-3.5); Glucose 298 mg/dL (70-105); Lipase 27 U/L (8-78); Potassium 4.3 mmol/L (3.5-5.1); Protein, Total 7.3 g/dL (6.0-8.3); Sodium 139 mmol/L (136-145)
[2022-11-04] MEDS ORDERED: Ondansetron PF 4 MG/2 ML Vial ONE (14:05)
[2022-11-04] MEDS ORDERED: Promethazine HCl 25 MG/ML VIAL ONE (17:51)
[2022-11-04 18:02] LABS: Bacteria/HPF None Seen HPF (None Seen); Bilirubin 1+ (Negative); Blood, Urine Negative (Negative); CAUTI Indications for Culture Pelvic or flank pain; Clarity Turbid (Clear); Glucose, Urine (Dipstick) 100 mg/dL (Negative); Ketone, Urine 40 mg/dL (Negative); Leukocyte Negative Leu/uL (Negative); Nitrite Negative (Negative); Protein, Urine (Dipstick) 50 mg/dL (Neg-Trace); RBC/HPF 0-3 HPF (0-3); Squamous Epithelial None Seen HPF (0-3); Urobilinogen 3 mg/dL (Less than 2); WBC/HPF 0-3 HPF (0-3); pH, Urine 6.5 (5.0-9.0)
[2022-11-04 18:06] LABS: Specific Gravity, Urine 1.046 (1.002-1.036); Urine Culture Reflex No No
== END 2022-11-04 18:42 | disposition home or self-care (01) ==
LOC: ERS 12:41
DX: N39.0 Urinary tract infection, site not specified (principal); E11.9 Type 2 diabetes mellitus without complications; E78.00 Pure hypercholesterolemia, unspecified; I10 Essential (primary) hypertension
CPT/HCPCS: 36415; 51701; 74177; 80053; 81001; 83690; 85025; 87086; 93005; 96361; 96365; 96375; J2405; J2550; Q9967

== ENCOUNTER 2022-11-07 21:39 | Emergency (ER) | payer OTHER, MEDICAID ==
[2022-11-07 22:18] LABS: #Eosinphils 0.3 thou/uL (0.0-0.7); #Monocytes 0.6 thou/uL (0.11-0.59); %Basophils 0.4 % (0.0-1.0); %Eosinophils 3.1 % (0.0-10.0); %Lymphocytes 13.9 % (21.0-51.0); %Monocytes 6.9 % (0.0-10.0); %Neutrophils 75.2 % (42.0-75.0); Hematocrit 45.1 % (36.0-47.0); Hemoglobin 15.2 g/dL (12.0-16.0); Mean Corpuscular HGB CONC 33.7 g/dL (32.0-36.0); Mean Corpuscular Hemoglobin 27.3 pg (27.0-31.0); Mean Platelet Volume 11.3 fL (7.4-10.4); Platelet Count 258 10x3/uL (130-400); RBC Distribution Width 13.7 % (11.5-14.5); Red Blood Cell (RBC) Count 5.57 mill/uL (4.20-5.40)
[2022-11-07 22:38] LABS: ALT (SGPT) 50 U/L (8-55); AST (SGOT) 30 U/L (5-34); Acetaminophen Less than 10 mcg/mL (10.0-30.0); Albumin 3.8 g/dL (3.5-5.0); Alcohol Less than 10.0 mg/dL (Less than 10); Alkaline Phosphatase 104 U/L (40-110); Anion Gap 21 mmol/L (10-20); BUN (Urea Nitrogen) 9 mg/dL (9.8-20.1); Bilirubin, Total 0.6 mg/dL (0.2-1.2); Calc. Creatinine Clearance 0 mL/min (70-130); Calcium 8.8 mg/dL (7.8-10.44); Carbon Dioxide 21 mmol/L (22-29); Chloride 100 mmol/L (98-107); Estimated GFR 67; Globulin 2.4 g/dL (2.4-3.5); Glucose 246 mg/dL (70-105); Potassium 3.1 mmol/L (3.5-5.1); Protein, Total 6.2 g/dL (6.0-8.3); Salicylate Less than 8.0 mg/dL (15.0-30.0); Sodium 139 mmol/L (136-145)
[2022-11-07 22:43] LABS: Troponin I 0.017 ng/mL (< 0.028)
[2022-11-07] MEDS ORDERED: Potassium Chloride 20 MEQ TAB ONE (23:31)
[2022-11-07 23:58] LABS: Amphetamine Not Detected (NotDetected); Barbiturates Screen Not Detected (NotDetected); Benzodiazepine Screen Not Detected (NotDetected); Cocaine Metabolite Screen Not Detected (NotDetected); Methadone Not Detected (NotDetected); Methamphetamine Not Detected (NotDetected); Opiate Screen Not Detected (NotDetected); Oxycodone Screen Not Detected (NotDetected); Phencyclidine (PCP) Not Detected (NotDetected); THC/Cannabinoid Screen Not Detected (NotDetected); Tricyclic Screen Not Detected (NotDetected)
[2022-11-08] MEDS ORDERED: hydrOXYzine Pamoate 25 mg Capsule PO SCH (09:00)
[2022-11-08] MEDS ORDERED: Propranolol 60 MG TAB PO SCH (09:00)
[2022-11-08] MEDS ORDERED: Lisinopril 10 MG TAB PO SCH (09:00)
[2022-11-08] MEDS ORDERED: Empagliflozin 25 MG TAB PO SCH (09:00)
[2022-11-08] MEDS ORDERED: Sertraline 25 MG TAB PO SCH (09:00)
[2022-11-08] MEDS ORDERED: Insulin Glargine 30 UNITS/0.3 ML VIAL SC SCH (09:00)
[2022-11-08] MEDS ORDERED: hydrOXYzine Pamoate 25 mg Capsule ONE (09:09)
[2022-11-08] MEDS ORDERED: Lisinopril 10 MG TAB ONE (09:09)
[2022-11-08] MEDS ORDERED: diphenhydrAMINE 25 MG CAP ONE (10:55)
== END 2022-11-08 11:04 ==
LOC: ERS 21:39
DX: R45.851 Suicidal ideations (principal); F32.89 Other specified depressive episodes; E11.9 Type 2 diabetes mellitus without complications; E78.00 Pure hypercholesterolemia, unspecified; I10 Essential (primary) hypertension; Z79.899 Other long term (current) drug therapy; Z79.84 Long term (current) use of oral hypoglycemic drugs
CPT/HCPCS: 36416; 71045; 71275; 80053; 80306; 80307; 84484; 85025; 85379; 93005; J1815; Q0177

== ENCOUNTER 2023-03-30 00:17 | Emergency (ER) | payer OTHER ==
[2023-03-30 01:31] LABS: #Eosinphils 0.2 thou/uL (0.0-0.7); #Monocytes 0.6 thou/uL (0.11-0.59); %Basophils 0.5 % (0.0-1.0); %Lymphocytes 20.9 % (21.0-51.0); %Monocytes 7.3 % (0.0-10.0); %Neutrophils 69.1 % (42.0-75.0); Hemoglobin 13.8 g/dL (12.0-16.0); Mean Corpuscular HGB CONC 32.1 g/dL (32.0-36.0); Mean Corpuscular Hemoglobin 27.8 pg (27.0-31.0); Mean Corpuscular Volume 86.5 fl (78.0-98.0); Platelet Count 250 10x3/uL (130-400); RBC Distribution Width 13.3 % (11.5-14.5); Red Blood Cell (RBC) Count 4.97 mill/uL (4.20-5.40); White Blood Cell (WBC) Count 8.7 10x3/uL (4.8-10.8)
[2023-03-30 02:05] LABS: ALT (SGPT) 15 U/L (8-55); AST (SGOT) 14 U/L (5-34); Albumin 3.8 g/dL (3.5-5.0); Alkaline Phosphatase 117 U/L (40-110); Anion Gap 16 mmol/L (10-20); BUN (Urea Nitrogen) 21 mg/dL (9.8-20.1); Bilirubin, Total 0.3 mg/dL (0.2-1.2); Calc. Creatinine Clearance 0 mL/min (70-130); Calcium 9.4 mg/dL (7.8-10.44); Carbon Dioxide 25 mmol/L (22-29); Chloride 103 mmol/L (98-107); Estimated GFR 74; Glucose 137 mg/dL (70-105); Magnesium 1.6 mg/dL (1.6-2.6); Potassium 4.4 mmol/L (3.5-5.1); Protein, Total 6.8 g/dL (6.0-8.3); Sodium 140 mmol/L (136-145)
== END 2023-03-30 02:34 | disposition home or self-care (01) ==
LOC: ERS 00:17
DX: E11.65 Type 2 diabetes mellitus with hyperglycemia (principal); E78.00 Pure hypercholesterolemia, unspecified; I10 Essential (primary) hypertension; Z79.899 Other long term (current) drug therapy; Z79.85 Long-term (current) use of injectable non-insulin antidiabetic drugs; Z79.4 Long term (current) use of insulin
CPT/HCPCS: 36416; 80053; 83735; 85025; 99284